=== PATIENT | male | born 1960 | race Caucasian/White ===

== ENCOUNTER 2021-08-10 20:35 | Emergency (ER) | payer OTHER ==
[~2021-08-10] VITALS: Ht 195.6 cm; Wt 131.5 kg
[2021-08-10] MEDS ORDERED: ESCITALOPRA5 MG/5 ML PO (22:43)
[2021-08-10] MEDS ORDERED: AVAPRO75 MG (22:44)
[2021-08-10] MEDS ORDERED: PLAVIX75 MG (22:44)
[2021-08-10] MEDS ORDERED: ELIQUIS2.5 MG (22:44)
[2021-08-10] MEDS ORDERED: CARDIZEM120 MG (22:44)
== END 2021-08-11 00:20 | disposition home or self-care (01) ==
LOC: ER 20:35
DX: M54.89 Other dorsalgia (principal); R07.89 Other chest pain